=== PATIENT | female | born 1965 | race African-American/Black ===

== ENCOUNTER 2016-06-16 15:04 | Emergency (ER) | payer SELFPAY ==
[~2016-06-16 15:04] MED LIST: ALEVE220 M4 PO; CALCIUM 600 +1 EA17 PO; COLACE100 M1 PO; NORCO 5-325 TA1 EACH PO; PRILOSEC20 M1 PO; ZOFRAN ODT4 MG/UDTAB PO
[2016-06-16 17:51] LABS: BASO % 0.2 % (0-2); EOS % 1.4 % (0-7); EOSINOPHIL ABSOLUTE COUNT 0.1 tho/cmm (0.0-0.7); IMMATURE GRANULOCYTES ABSOLUTE 0.01 tho/cmm (0-0.03); IMMATURE GRANULOCYTES PERCENT 0.2 % (0-0.3); LYMPH % 33.7 % (20-45); LYMPH ABSOLUTE COUNT 2.1 tho/cmm (0.8-4.5); MCH (MEAN CORPUSCULAR HGB) 30.2 pg (28.0-32.0); MCHC MEAN CORPUSCULAR HGB CONC 34.3 % (32.0-36.0); MCV (MEAN CELL VOLUME) 88.2 fl (82.0-96.0); MEAN PLATELET VOLUME 10.9 cmc (9.4-12.4); MONO % 9.4 % (0-12); MONOCYTE ABSOLUTE COUNT 0.6 tho/cmm (0.0-1.2); NEUTROPHIL ABSOLUTE COUNT 3.5 tho/cmm (1.6-8.0); NEUTROPHIL-AUTOMATED 3.5 tho/cmm (1.6-8.0); NEUTROPHILS % 55.1 % (40-80); PLATELET COUNT 228 tho/cmm (150-450); RED BLOOD COUNT 3.97 mil/cmm (4.00-5.20); RED CELL DISTRIBUTION WIDTH 12.5 % (12.4-16.4); WHITE BLOOD COUNT 6.3 tho/cmm (4.0-10.0)
[2016-06-16 18:07] LABS: ALB/GLOB RATIO 0.8 (0.8-2.0); ALBUMIN 3.6 g/dl (3.5-5.0); ALKALINE PHOSPHATASE 101 U/L (33-138); ALT/SGPT 41 U/L (12-78); ANION GAP 11 mmol/L (0-20); AST/SGOT 26 U/L (10-40); BILIRUBIN,TOTAL 0.3 mg/dl (0-1.5); BLOOD UREA NITROGEN 14 mg/dl (6-24); CALCIUM 9.1 mg/dl (8.5-10.5); CARBON DIOXIDE-VENOUS 27 mmol/L (22-32); CHLORIDE 105 mmol/l (96-110); CREATININE 0.87 mg/dl (0.50-1.10); GLUCOSE 109 mg/dL (70-110); LIPASE 150 U/L (73-393); POTASSIUM 3.8 mmol/L (3.7-5.1); SODIUM 139 mmol/L (135-145); eGFR VALUE FOR BLACK >90 mL/Min
[2016-06-16] MEDS ORDERED: OMEPRAZOLE20 M3 PO (18:36)
[2016-09-09] MEDS ORDERED: PREVACID15 M2 PO (17:07)
== END 2016-06-16 18:40 ==
LOC: EDMED 15:04
PROVIDERS: Emergency Medicine
DX: R10.13 Epigastric pain (principal); Z90.49 Acquired absence of other specified parts of digestive tract

== ENCOUNTER 2016-07-22 16:05 | Emergency (ER) | payer SELFPAY ==
[~2016-07-22 16:05] MED LIST changes: +OMEPRAZOLE20 M3 PO
[2016-09-09] MEDS ORDERED: PREVACID15 M2 PO (17:07)
== END 2016-07-22 19:05 | disposition left against medical advice (07) ==
LOC: EDMED 16:05
DX: R60.0 Localized edema (principal); Z53.29 Procedure and treatment not carried out because of patient's decision for other reasons